=== PATIENT | male | born 1980 | race Caucasian/White ===

== ENCOUNTER 2019-02-26 16:06 | Emergency (ER) | payer OTHER ==
[~2019-02-26] VITALS: Ht 170.2 cm; Wt 113.4 kg
[~2019-02-26 16:06] MED LIST: AMOX1TAB12 PO; KETO10TA2 PO; MOTRIN800 MG PO; OMEPRAZOLE40 MG; ORPH100T PO; PREVACID15 MG; SEPTRA DS TABLE1 TAB PO
[2019-02-26] MEDS ORDERED: DOLOGEN CAPLET1 EACH PO (19:20)
[2019-02-26] MEDS ORDERED: TUSNEL LIQUID178 ML PO (19:20)
[2019-02-26] MEDS ORDERED: XOFLUZA40 MG PO (19:22)
== END 2019-02-26 19:29 | disposition home or self-care (01) ==
LOC: ER 16:06
DX: J11.1 Influenza due to unidentified influenza virus with other respiratory manifestations (principal); B34.9 Viral infection, unspecified

== ENCOUNTER 2021-12-10 12:36 | Emergency (ER) | payer OTHER ==
[~2021-12-10] VITALS: Ht 170.2 cm; Wt 117.9 kg
[~2021-12-10 12:36] MED LIST changes: +DOLOGEN CAPLET1 EACH PO; +TUSNEL LIQUID178 ML PO; +XOFLUZA40 MG PO
== END 2021-12-10 17:26 | disposition home or self-care (01) ==
LOC: ER 12:36
DX: R42 Dizziness and giddiness (principal); R53.81 Other malaise; Z20.822 Contact with and (suspected) exposure to COVID-19